=== PATIENT | male | born 1965 | race American Indian/Alaskan Native ===

== ENCOUNTER 2017-03-05 02:31 | Inpatient (IN) | payer MEDICAID, OTHER ==
--- NOTE | 2017-03-05 03:21 | C.PDOC ---
History Of Present Illness 51 year old male presents to the ED as a pre-screen seeking detox from alcohol. Patient's last alcohol drink was 1 hour prior to arrival. Patient denies physical complaints, suicidal, or homicidal ideations at this time. Time Seen by Provider: 03/05/17 03:03 Chief Complaint (Nursing): Psychiatric Evaluation History Per: Patient History/Exam Limitations: no limitations Suicide/Self Injury Attempted (Context): None Modifying Factor(s): Alcohol Severity: None Pain Scale Rating Of: 0 Associated Symptoms: denies: Suicidal Thoughts, Suicidal Plan Involuntary Hold By: None Recent travel outside of the [place]: No Past Medical History Reviewed: Historical Data, Nursing Documentation, Vital Signs Vital Signs: Last Vital Signs Temp 98.1 F 03/05/17 06:00 Pulse 81 03/05/17 06:00 Resp 18 03/05/17 06:00 BP 110/65 03/05/17 06:00 Pulse Ox 95 03/05/17 06:00 - Medical History PMH: Hypercholesterolemia Family History: States: Unknown Family Hx - Social History Hx Alcohol Use: Yes Hx Substance Use: Yes - Immunization History Hx Tetanus Toxoid Vaccination: Yes Hx Influenza Vaccination: No Hx Pneumococcal Vaccination: No Review Of Systems Constitutional: Negative for: Fever, Chills Cardiovascular: Negative for: Chest Pain, Palpitations Respiratory: Negative for: Cough, Shortness of Breath Gastrointestinal: Negative for: Nausea, Vomiting, Abdominal Pain, Diarrhea Physical Exam - Physical Exam Appears: Non-toxic, No Acute Distress Skin: Warm, Dry Head: Atraumatic, Normacephalic Eye(s): bilateral: Normal Inspection, PERRL, EOMI Oral Mucosa: Moist Neck: Supple Chest: Symmetrical, No Deformity Cardiovascular: Rhythm Regular, No Murmur Respiratory: Normal Breath Sounds, No Rales, No Rhonchi, No Wheezing Gastrointestinal/Abdominal: Soft, No Tenderness, No Distention, No Guarding, No Rebound Extremity: Normal ROM, No Tenderness Neurological/Psych: Oriented x3 ED Course And Treatment - Laboratory Results Result Diagrams: 03/05/17 03:38 03/05/17 03:38 O2 Sat by Pulse Oximetry: 100 (RA) Medical Decision Making Medical Decision Makin:40 patient has been medically cleared. Disposition - Disposition Disposition: HOSPITALIZED Disposition Time: 06:40 Condition: STABLE - Clinical Impression Clinical Impression: Alcohol dependence - Scribe Statement The provider has reviewed the documentation as recorded by the Scribe Bisi Mccarty All medical record entries made by the Scribe were at my direction and personally dictated by me. I have reviewed the chart and agree that the record accurately reflects my personal performance of the history, physical exam, medical decision making, and the department course for this patient. I have also personally directed, reviewed, and agree with the discharge instructions and disposition. Decision To Admit - Pt Status Changed To: Hospital Disposition Of: Inpatient - Admit Certification Admit to Inpatient:: After my assessment, the patient will require hospitalization for at least two midnights. This is because of the severity of symptoms shown, intensity of services needed, and/or the medical risk in this patient being treated as an outpatient. - InPatient: Physician Admission Certification: I certify that this patient requires 2 or more midnights of care for the following reason:: needs inpt detox - . Bed Request Type: Detox Admitting Physician: Enedelia Mckeon Patient Diagnosis: Alcohol dependence
[2017-03-05 03:45] LABS: BASO # 0.1 K/uL (0.0-0.2); EOS % 9.2 % (0.0-4.0); LYMPH # 1.8 K/uL (1.0-4.3); LYMPH % 17.5 % (20.0-40.0); MEAN CELL VOLUME 85.3 fL (80.0-94.0); MEAN CORPUSCULAR HEMOGLOBIN 29.1 pg (27.0-31.0); MEAN CORPUSCULAR HGB CONC 34.1 g/dL (33.0-37.0); MEAN PLATELET VOLUME 7.8 fL (7.2-11.7); MONO # 1.1 K/uL (0.0-0.8); MONO % 10.5 % (0.0-10.0); NRBC % 0.1 % (0.0-2.0); RED CELL DISTRIBUTION WIDTH 14.8 % (11.5-14.5); WHITE BLOOD COUNT 10.4 K/uL (4.8-10.8)
[2017-03-05 03:48] LABS: CHLORIDE 98 mmol/L (98-107); POTASSIUM 3.6 mmol/L (3.6-5.2); SODIUM 145 mmol/L (132-148)
[2017-03-05 03:50] LABS: ALB/GLOB RATIO 1.4 (1.0-2.1); AST/SGOT 65 U/L (17-59); BILIRUBIN,TOTAL 0.8 mg/dL (0.2-1.3); BLOOD UREA NITROGEN 12 mg/dL (9-20); CARBON DIOXIDE 27 mmol/L (22-30); GFR AFRICAN-AMERICAN > 60; TOTAL PROTEIN 8.4 g/dL (6.3-8.3)
[2017-03-05 03:51] LABS: ALKALINE PHOSPHATASE 71 U/L (38-126); ALT/SGPT 97 U/L (21-72); CALCIUM 9.8 mg/dl (8.6-10.4); GLUCOSE,RANDOM 101 mg/dL (75-110)
[2017-03-05 04:06] LABS: ALCOHOL SERUM 29 mg/dl (0-10)
[2017-03-05 04:37] LABS: GRANULAR CAST 5 /lpf (0-1); RBC URINE 1 /hpf (0-3); URINE BILIRUBIN NEGATIVE (NEGATIVE); URINE BLOOD NEGATIVE (NEGATIVE); URINE COLOR Yellow (YELLOW); URINE GLUCOSE (UA) NORMAL (Normal); URINE KETONE NEGATIVE (NEGATIVE); URINE LEUKOCYTE ESTERASE NEG Leu/uL (Negative); URINE PROTEIN NEGATIVE (NEGATIVE); URINE UROBILINOGEN NORMAL mg/dL (0.2-1.0); WBC URINE 3 /hpf (0-5)
--- NOTE | 2017-03-05 10:43 | PCM.BM ---
<Meeta Wing - Last Filed: 03/05/17 10:41> Treatment Plan Problems - Problems identified on initial assessmt Potential for Alcohol abuse Date Initiated: 03/05/17 Time Initiated: 07:30 Assessment reference: NA Status: Active Treatment assets and liabiliti Patient Assests: negotiates basic needs Patient Liabilities: poor support system, substance abuse - Milieu Protocol Maintain good personal hygiene: daily Encourage regular showers, daily Remind patient to perform daily oral care, daily Assist patient to perform ADL's, every shift Encourage regular showers, every shift Remind patient to perform daily oral care, every shift Assist patient to perform ADL's Maintain personal safety: daily Educate patient to report safety concerns to staff, daily Monitor environment for contraband/sharps, every shift Educate patient to report safety concerns to staff, every shift Monitor environment for contraband/sharps Medication safety: Monitor for expected outcome, potential side effects: daily, every shift, Assess barriers to learning: daily, every shift, Assess readiness for medication education: daily, every shift <Tiny Alston - Last Filed: 03/06/17 08:23> Family Contact Family involvement: Famliy/SO not involved Family contact: Patient agrees to contact, Patient declines to allow family contact at present - Goals for Treatment Patient goals for treatment: Complete detox and transition to inpatient tx. at the [facility]. Discharge/Continuing Care - Education Needs Education Needs: Patient Medication, Patient Diagnosis/Disease Process, Patient Coping Skills, Patient Anger Management skills, Patient Placement options, Patient Community resources - Discharge Discharge Criteria: Ability to care for self, No longer exhibiting s/s of withdrawal, Reduction of target symptoms Discharge to:: Substance Abuse Rehab - Treatment Team Participation Patient/Family/SO Statement: 03/06/17 08:23 "I need to go inpatient from here..." Discussed with Family/SO: No Was Patient/Family/SO present at Treatment Team Meeting: Yes
[2017-03-05] MEDS: Multiple Vitamins Tab PO SCH (10:52)
[2017-03-05] MEDS: Pantoprazole 20 mg EC Tab PO SCH (11:47)
--- NOTE | 2017-03-05 20:09 | PCM.PSYCH ---
Initial Psychiatric Evaluation - Initial Psychiatric Evaluation Type of Admission: Voluntary Legal Status: Capacity Chief Complaint (in patient's own words): "I have alcohol and cocaine problem" Patient's Reaction to Hospitalization: He is feeling safe. History of Present Illness and Precipitating Events: This pt is a 51 year old single AA male self referred for alcohol and cocaine detox. Pt reports he used 1 1/2 hour prior to arrival to ED. Pt states he drinks 1 pint of vodka daily and about $120-200 worth of cocaine daily. Pt states he had multiple relapse in the past. Longest period of sobriety was for 6 year. 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 Pt states he had relapse on alcohol and cocaine 2 weeks ago after stay sober for 1 year. He reported that he tried not drinking for the past few days but had relapsed 2 weeks ago. Pt experiencing withdrawal symptoms when he tried to stop by himself such as Nausea, chills, autonomic symptoms, headaches, he denied any seizures, or DT. Pt said his substance use is negatively impacting his life. 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 Pt reports his sleep and appetite being unchanged. He stated that he first taken one stick of xanax to calm himself yesterday. He denied using other illicit drugs Pt reports being in detox three previous times at [facility] and [place] "years ago" and most recently at [facility] in 2016. Pt states his longest sobriety was after [facility] being 6 years. Pt reports he has a family hx of alcoholics and heroin use. Pt reports that he is feeling depressed on and off, without SI, intent or plan. He denied any access to guns. Pt states he has never told anyone but has had past S/I in 1980s and he OD on unknown pills and slept and on awakening had regrets thoughts of his action. He denied perceptual disturbances. He denied manic symptoms. BAL of 29 @ 3:38 and positive for benzos and cocaine Current Medications: Active Medications Generic Name Dose Route Start Last Admin Trade Name Freq PRN Reason Stop Dose Admin Clonidine HCl 0.1 mg 03/05/17 05:43 Catapres PO Q4H PRN Symptoms of alcohol withdrawl Folic Acid 1 mg 03/05/17 10:00 03/05/17 10:52 Folic Acid PO Not Given DAILY JOEL Gabapentin 300 mg 03/05/17 10:00 03/05/17 17:54 Neurontin PO 300 mg BID JOEL Administration Hydroxyzine HCl 25 mg 03/05/17 05:43 Atarax PO Q6 PRN Anxiety Lorazepam 2 mg 03/05/17 10:33 03/05/17 17:54 Ativan PO 03/09/17 05:44 2 mg Q4H JOEL Administration Taper Multivitamins 1 tab 03/05/17 10:00 03/05/17 10:52 Hexavitamin PO Not Given DAILY JOEL Ondansetron HCl 4 mg 03/05/17 05:43 Zofran Tab PO Q8H PRN Nausea/Vomiting Pantoprazole Sodium 20 mg 03/05/17 10:30 03/05/17 11:47 Protonix Ec Tab PO Not Given DAILY JOEL Pneumococcal Polyvalent Vaccine 0.5 ml 03/07/17 10:00 Pneumovax 23 Vaccine IM 03/07/17 10:01 .ONCE ONE Rosuvastatin Calcium 10 mg 03/05/17 22:00 Crestor PO HS JOEL Thiamine HCl 100 mg 03/05/17 10:00 03/05/17 10:53 Vitamin B1 Tab PO Not Given DAILY JOEL Trazodone HCl 50 mg 03/05/17 05:43 Desyrel PO HS PRN Insomnia Past Psychiatric History - Past Psychiatric History Prior Professional Help: yes Prior Psychiatric Treatment: detox and inpatient rehab At [facility]: [facility] and [place] History of Abuse: denied History of ETOH/Drug Use: please see HPI History of Family Illness: denied. Pertinent Medical Hx (Current Medical&Sleep Prob, Allergies): Allergies Allergy/AdvReac Type Severity Reaction Status Date / Time No Known Allergies Allergy Unverified 03/05/17 03:11 Atorvastatin [Lipitor] 10 mg PO DAILY 03/05/17 Ranitidine HCl [Zantac] 150 mg PO DAILY 03/05/17 High Cholesterol GERD Review of Systems - Review of Systems Systems not reviewed;Unavailable: Acuity of Condition All systems: reviewed and no additional remarkable complaints except ( psychiatric symptoms) - Constitutional Constitutional: Chills, Sweats Mental Status Examination - Personal Presentation Personal Presentation: Looks stated age, Dressed appropriate to season - Affect Affect: Constricted - Motor Activity Motor Activity: Calm - Reliability in Providing Information Reliability in Providing Information: Fair - Speech Speech: Organized, Coherent - Mood Mood: Anxious - Formal Thought Process Formal Thought Process: No Impairment - Hallucinations/Delusions Delusions: Other (denied) - Obsessions/Compulsions Obsessions: No Compulsions: No - Cognitive Functions Orientation: Person, Place, Situation, Time Sensorium: Alert Attention/Concentration: Attentive Abstract Thinking: [place] Estimate of Intelligence: Average Judgement: Intact, as evidence by: Good judgement (that he needs treatment), Intact, as evidence by: Insight regarding need for hospitalization Memory: Recent intact, as evidence by: Ability to recall events of the day - Risk Risk: Other (denied) - Strength & Assets Inventory Strength & Assets Inventory: Intelligence, Employment history, Skills - Limitations Limitations: Living alone, Other (chronic alcohol use and cocaine use) DSM 5 DX - DSM 5 DSM 5 Diagnosis: Alcohol use disorder, severe, dependence, withdrawal symptoms Cocaine use disorder Unspecified affective d/o - Recommended/Plan of Treatment Treatment Recommendations and Plan of Treatment: Ativan detox Gabapentin for augmentation As needed meds and vitamins Attend groups and activities [place] for abstinence and CBT for relapse prevention Support and psychoeducation Consider and encourage MAT Refer to after care 33 min Projected ELOS: 4-5 days Prognosis: fair with meds Discharge Plan and Discharge Criteria: After care planning by OPAL When pt will complete his detox - Smoking Cessation Smoking Cessation Initiated: Yes
[2017-03-06] MEDS: guaiFENesin 100 mg/5 ml Syrup UD PO PRN ×2 (05:35→12:27)
[2017-03-06] MEDS: Benzocaine/Menthol (Cepacol) Lozenge PO PRN ×3 (05:36→17:14)
[2017-03-06] MEDS: Multiple Vitamins Tab PO SCH (09:36)
[2017-03-06] MEDS: Pantoprazole 20 mg EC Tab PO SCH (09:36)
[2017-03-06] MEDS: Aluminum Hydroxide/Magnesium Hydroxide Susp (30 mL) PO PRN ×2 (12:49→20:25)
--- NOTE | 2017-03-06 13:09 | PCM.PYCHPN ---
Psychiatric Progress Note - Psychiatric Progress Note Patient seen today, length of contact: 17 min Patient Chief Complaint: "OK today" Problems Identified/Issues Discussed: The pt is seen, chart reviewed, case discussed with staff. The pt is compliant with medications and reports no side-effects. Symptoms are improving but needs more time to stabilize. After care discussed, support and psychoeducation given. Medication Change: Yes (detox changes daily) Medical Record Reviewed: Yes Mental Status Examination - Cognitive Function Orientation: Person, Place, Situation, Time Memory: Intact Attention: WNL Concentration: Poor Association: WNL Fund of Knowledge: WNL - Mood Mood: Anxious - Affect Affect: Constricted - Speech Speech: Appropriate - Formal Thought Process Formal Thought Process: No Impairment - Suicidal Ideation Suicidal Ideation: No - Homicidal Ideation Homicidal Ideation: No Goal/Treatment Plan - Goal/Treatment Plan Need for Continued Stay: Discharge may exacerbated symptoms, Severe functional impairment Progress Toward Problem(s) and Goals/Treatment Plan: Continue medications Support and psychoeducation daily Attend groups and activities daily Consider MAT [place] and CBT After care planning by counselor Estimated Date of D/C: 03/10/17
[2017-03-06] MEDS ORDERED: guaiFENesin 200 mg/10 ml Syrup UD PO PRN (14:15)
--- NOTE | 2017-03-06 20:45 | CP.PCM.CON ---
<Joshua Gonsalves - Last Filed: 03/06/17 23:00> History of Present Illness - History of Present Illness History of Present Illness: 51 yo M with a PMHx of pneumonia x3 presented to the ED last night for detox from alcohol and cocaine. Patient now complains of worsening productive cough which began 2 days ago. He doesn't recall the color or consistency of the mucous. The cough is persistent and is provoked by speaking. No alleviating factors. Associated symptoms include headache, ringing ears and chest pain which are all exacerbated when he coughs. [place] [facility] [place] He was also treated for pneumonia in his 20s and once when he was 5 yrs old. He has a 1 ppd smoking history for 30 years. He denies sick contact, recent travel, nausea, vomiting, diarrhea. PMD: Dr Hilton PMHx: Hx of pneumonia x3, HLD PSHx: denies Allergies: NKA Home Medications: none FamHx: denies SocialHx: smokes 1 ppd for 30 years, drinks 1 pint of vodka daily, cocaine use, lives [facility]; unemployed Review of Systems - Constitutional Constitutional: Headache. absent: Chills, Fever - EENT Eyes: absent: Change in Vision Ears: Tinnitus Nose/Mouth/Throat: Nasal Congestion - Cardiovascular Cardiovascular: Chest Pain. absent: Irregular Heart Rhythm, Lightheadedness, Palpitations - Respiratory Respiratory: Cough, Wheezing. absent: Dyspnea, Hemoptysis - Gastrointestinal Gastrointestinal: absent: Abdominal Pain, Constipation, Diarrhea - Genitourinary Genitourinary: absent: Dysuria - Musculoskeletal Musculoskeletal: absent: Back Pain, Muscle Weakness - Integumentary Integumentary: absent: Lesions - Neurological Neurological: Headaches. absent: Confusion, Convulsions, Dizziness Past Patient History - Past Medical History & Family History Past Medical History?: Yes - Past Social History Smoking Status: Current Some Days Smoker - CARDIAC Hx Cardiac Disorders: Yes Hx Hypercholesterolemia: Yes - PULMONARY Hx Respiratory Disorders: No - NEUROLOGICAL Hx Neurological Disorder: No - HEENT Hx HEENT Problems: No - RENAL Hx Chronic Kidney Disease: No - ENDOCRINE/METABOLIC Hx Endocrine Disorders: No - HEMATOLOGICAL/ONCOLOGICAL Hx Blood Disorders: No - INTEGUMENTARY Hx Dermatological Problems: No - MUSCULOSKELETAL/RHEUMATOLOGICAL Hx Musculoskeletal Disorders: No Hx Falls: No - GASTROINTESTINAL Hx Gastrointestinal Disorders: Yes Hx Gastroesophageal Reflux: Yes - GENITOURINARY/GYNECOLOGICAL Hx Genitourinary Disorders: No - PSYCHIATRIC Hx Psychophysiologic Disorder: Yes Hx Anxiety: Yes Hx Substance Use: Yes (cocaine) - SURGICAL HISTORY Hx Surgeries: Yes Other/Comment: circumcision age 11, dental work - pt cant recall date or age - ANESTHESIA Hx Anesthesia: Yes (circumcision age 11 , dental work cant recall date/age done) Hx Anesthesia Reactions: No Hx Malignant Hyperthermia: No Has any member of the family had a problem w/ anesthesia?: No Meds Allergies/Adverse Reactions: Allergies Allergy/AdvReac Type Severity Reaction Status Date / Time No Known Allergies Allergy Unverified 03/05/17 03:11 - Medications Medications: Current Medications Al Hydrox/Mg Hydrox/Simethicone (Maalox 30 Ml) 30 ml PO TID PRN PRN Reason: Indigestion / Heartburn Last Admin: 03/06/17 20:25 Dose: 30 ml Benzocaine/Menthol (Cepacol Sore Throat) 1 aiden PO Q4 PRN PRN Reason: Sore Throat Last Admin: 03/06/17 17:14 Dose: 1 aiden Clonidine HCl (Catapres) 0.1 mg PO Q4H PRN PRN Reason: Symptoms of alcohol withdrawl Folic Acid (Folic Acid) 1 mg PO DAILY [facility] Last Admin: 03/06/17 09:30 Dose: 1 mg Gabapentin (Neurontin) 300 mg PO BID [facility] Last Admin: 03/06/17 18:25 Dose: 300 mg Guaifenesin (Robitussin) 200 mg PO Q4H PRN PRN Reason: Cough Last Admin: 03/06/17 20:24 Dose: 200 mg Hydroxyzine HCl (Atarax) 25 mg PO Q6 PRN PRN Reason: Anxiety Ibuprofen (Motrin Tab) 600 mg PO Q6 PRN PRN Reason: pain Last Admin: 03/06/17 18:55 Dose: 600 mg Lorazepam (Ativan) 1 mg PO Q4H [facility] PRN Reason: Taper Stop: 03/09/17 05:44 Last Admin: 03/06/17 18:25 Dose: 1 mg Multivitamins (Hexavitamin) 1 tab PO DAILY [facility] Last Admin: 03/06/17 09:36 Dose: 1 tab Ondansetron HCl (Zofran Tab) 4 mg PO Q8H PRN PRN Reason: Nausea/Vomiting Pantoprazole Sodium (Protonix Ec Tab) 20 mg PO DAILY [facility] Last Admin: 03/06/17 09:36 Dose: 20 mg Pneumococcal Polyvalent Vaccine (Pneumovax 23 Vaccine) 0.5 ml IM .ONCE ONE Stop: 03/07/17 10:01 Rosuvastatin Calcium (Crestor) 10 mg PO HS [facility] Last Admin: 03/05/17 22:37 Dose: Not Given Thiamine HCl (Vitamin B1 Tab) 100 mg PO DAILY [facility] Last Admin: 03/06/17 09:36 Dose: 100 mg Trazodone HCl (Desyrel) 50 mg PO HS PRN PRN Reason: Insomnia Physical Exam - Constitutional Appears: Well, Non-toxic, No Acute Distress - Head Exam Head Exam: ATRAUMATIC, NORMAL INSPECTION - Eye Exam Eye Exam: EOMI Pupil Exam: PERRL - ENT Exam ENT Exam: Mucous Membranes Moist - Neck Exam Neck exam: Positive for: Normal Inspection. Negative for: Lymphadenopathy, Tenderness - Respiratory Exam Respiratory Exam: Wheezes. absent: Rales, Rhonchi Additional comments: (+) wheezing bilaterally in lower lung [place] - Cardiovascular Exam Cardiovascular Exam: REGULAR RHYTHM. absent: Bradycardia, Tachycardia, Systolic Murmur - GI/Abdominal Exam GI & Abdominal Exam: Normal Bowel Sounds, Soft. absent: Tenderness - Rectal Exam Rectal Exam: Deferred - Extremities Exam Extremities exam: Positive for: normal capillary refill, normal inspection. Negative for: pedal edema, tenderness - Back Exam Back exam: NORMAL INSPECTION. absent: CVA tenderness (L), CVA tenderness (R) - Neurological Exam Neurological exam: Alert, CN II-XII Intact, Oriented x3 - Psychiatric Exam Psychiatric exam: Normal Affect, Normal Mood - Skin Skin Exam: Dry, Intact, Normal Color, Warm Results - Vital Signs Recent Vital Signs: Last Vital Signs Temp 99.6 F 03/06/17 19:32 Pulse 81 03/06/17 19:32 Resp 18 03/06/17 19:32 BP 91/62 L 03/06/17 19:32 Pulse Ox 97 03/06/17 19:32 - Labs Result Diagrams: 03/05/17 03:38 03/05/17 03:38 Assessment & Plan (1) Cough Assessment and Plan: persistent productive cough; (+) wheezing b/l lower lung [place]; afebrile; no leukocytosis; eosinophil 9.2H; negative UA; hx of pneumonia; CXR stat repeat cbc w/ diff administered influenz vaccine, pneumoccal vaccine Status: Acute (2) HLD (hyperlipidemia) Assessment and Plan: rosuvastatin 10mg po hs Status: Acute (3) Prophylactic measure Assessment and Plan: GI: protonix 20mg po daily DVT: not indicated Diet: regular Status: Acute <Mason Pizarro - Last Filed: 03/07/17 06:23> Meds - Medications Medications: Current Medications Al Hydrox/Mg Hydrox/Simethicone (Maalox 30 Ml) 30 ml PO TID PRN PRN Reason: Indigestion / Heartburn Last Admin: 03/06/17 20:25 Dose: 30 ml Albuterol Sulfate (Albuterol 0.083% Inhal Dolly (2.5 Mg/3 Ml) Ud) 2.5 mg INH RQ6 PRN PRN Reason: Cough and congestion Albuterol Sulfate (Albuterol 0.083% Inhal Dolly (2.5 Mg/3 Ml) Ud) 2.5 mg INH STAT STA Stop: 03/07/17 05:49 Benzocaine/Menthol (Cepacol Sore Throat) 1 aiden PO Q4 PRN PRN Reason: Sore Throat Last Admin: 03/06/17 17:14 Dose: 1 aiden Clonidine HCl (Catapres) 0.1 mg PO Q4H PRN PRN Reason: Symptoms of alcohol withdrawl Folic Acid (Folic Acid) 1 mg PO DAILY JOEL Last Admin: 03/06/17 09:30 Dose: 1 mg Gabapentin (Neurontin) 300 mg PO BID JOEL Last Admin: 03/06/17 18:25 Dose: 300 mg Guaifenesin (Robitussin) 200 mg PO Q4H PRN PRN Reason: Cough Last Admin: 03/06/17 20:24 Dose: 200 mg Hydroxyzine HCl (Atarax) 25 mg PO Q6 PRN PRN Reason: Anxiety Ibuprofen (Motrin Tab) 600 mg PO Q6 PRN PRN Reason: pain Last Admin: 03/06/17 18:55 Dose: 600 mg Lorazepam (Ativan) 1 mg PO Q8H JOEL PRN Reason: Taper Stop: 03/09/17 05:44 Last Admin: 03/07/17 02:36 Dose: Not Given Multivitamins (Hexavitamin) 1 tab PO DAILY [facility] Last Admin: 03/06/17 09:36 Dose: 1 tab Ondansetron HCl (Zofran Tab) 4 mg PO Q8H PRN PRN Reason: Nausea/Vomiting Pantoprazole Sodium (Protonix Ec Tab) 20 mg PO DAILY [facility] Last Admin: 03/06/17 09:36 Dose: 20 mg Pneumococcal Polyvalent Vaccine (Pneumovax 23 Vaccine) 0.5 ml IM .ONCE ONE Stop: 03/07/17 10:01 Rosuvastatin Calcium (Crestor) 10 mg PO HS [facility] Last Admin: 03/06/17 21:56 Dose: 10 mg Thiamine HCl (Vitamin B1 Tab) 100 mg PO DAILY [facility] Last Admin: 03/06/17 09:36 Dose: 100 mg Trazodone HCl (Desyrel) 50 mg PO HS PRN PRN Reason: Insomnia Results - Vital Signs Recent Vital Signs: Last Vital Signs Temp 99.6 F 03/06/17 19:32 Pulse 81 03/06/17 19:32 Resp 18 03/06/17 19:32 BP 110/70 03/06/17 21:55 Pulse Ox 97 03/06/17 19:32 - Labs Result Diagrams: 03/06/17 21:17 03/05/17 03:38 Labs: Laboratory Results - last 24 hr 03/06/17 21:17 WBC 7.9 RBC 4.44 Hgb 12.7 D Hct 37.3 MCV 84.1 MCH 28.7 MCHC 34.2 RDW 14.8 H Plt Count 189 MPV 7.7 Neut % (Auto) 53.7 Lymph % (Auto) 22.0 [place] % (Auto) 12.9 H Eos % (Auto) 10.8 H Baso % (Auto) 0.6 Neut # 4.2 Lymph # 1.7 [place] # 1.0 H Eos # 0.8 H Baso # 0.0 Assessment & Plan - Assessment and Plan (Free Text) Plan: I saw and examined this patient who complains of cough beginning after admission on 03/05/17. Initially non productive , but now with white sputum. No fever, headaches, dizziness, nausea, vomiting, nasal congestion nor throat ache. Exam: General: Appears well, no respiratory distress Resp: Generalized Inspiratory and expiratory coarse rhonchi with mild wheezes CVS: S1 S2 RRR Abd: Soft non-tender, +ve bowel sounds Ext: nontender, no edema Neuro: Awake, Alert, Oriented, No focal neurological deficit I&P #. Bronchitis r/o Pneumonia - CXR AP/lat ordered - Blood culture - repeat CBC - Robitussin - Albuterol mini Neb - Encourage fluid intake - Antibiotics if Chest X Ray shows infiltrate Thanks for the consult. We will follow the Patient with you Mason Pizarro MD - Date & Time Date: 03/07/17 Time: 06:09
[2017-03-06 21:20] LABS: BASO % 0.6 % (0.0-2.0); EOS # 0.8 K/uL (0.0-0.7); EOS % 10.8 % (0.0-4.0); HEMATOCRIT 37.3 % (35.0-51.0); LYMPH # 1.7 K/uL (1.0-4.3); MEAN CELL VOLUME 84.1 fL (80.0-94.0); MEAN CORPUSCULAR HEMOGLOBIN 28.7 pg (27.0-31.0); MEAN CORPUSCULAR HGB CONC 34.2 g/dL (33.0-37.0); MEAN PLATELET VOLUME 7.7 fL (7.2-11.7); MONO % 12.9 % (0.0-10.0); RED CELL DISTRIBUTION WIDTH 14.8 % (11.5-14.5); WHITE BLOOD COUNT 7.9 K/uL (4.8-10.8)
[2017-03-07] MEDS ORDERED: Albuterol 0.083% Inhal Sol (2.5 mg/3 mL) UD INH STA (05:48)
--- NOTE | 2017-03-07 07:02 | RAD ---
HISTORY: cough; hx of recent pneumonia COMPARISON: None TECHNIQUE: Chest PA and lateral FINDINGS: LUNGS: No focal consolidation is seen. PLEURA: No pleural effusion is identified. CARDIOVASCULAR: Heart size is within normal limits. OSSEOUS STRUCTURES: No significant abnormalities. VISUALIZED UPPER ABDOMEN: Unremarkable. OTHER FINDINGS: None. IMPRESSION: No acute cardiopulmonary process seen.
--- NOTE | 2017-03-07 07:42 | CP.PCM.PN ---
<Abdias Laguna - Last Filed: 03/07/17 15:39> Subjective - Date & Time of Evaluation Date of Evaluation: 03/07/17 Time of Evaluation: 07:30 - Subjective Subjective: PGY1 Medicine Note for Dr. Pamela Cartwright Patient seen and examined this morning. Patient was seen laughing and talking with friends in common area. Patient states that he has been coughing up white phlegm for a few days. He states that he recently had pneumonia 2 - 3 months ago that he took a z pack for that cleared it up in a couple of days. Patient is talking and coughing periodically but does not appear in any distress. The patient's cough was non productive while being examined. Denies f/c, n/v/d, sob , cp, abd pain or headaches. Objective - Vital Signs/Intake and Output Vital Signs (last 24 hours): Temp Pulse Resp BP Pulse Ox 98.4 F 73 18 123/77 95 03/07/17 06:30 03/07/17 06:30 03/07/17 06:30 03/07/17 06:30 03/07/17 06:30 - Medications Medications: Current Medications Al Hydrox/Mg Hydrox/Simethicone (Maalox 30 Ml) 30 ml PO TID PRN PRN Reason: Indigestion / Heartburn Last Admin: 03/06/17 20:25 Dose: 30 ml Albuterol Sulfate (Albuterol 0.083% Inhal Dolly (2.5 Mg/3 Ml) Ud) 2.5 mg INH RQ6 PRN PRN Reason: Cough and congestion Benzocaine/Menthol (Cepacol Sore Throat) 1 aiden PO Q4 PRN PRN Reason: Sore Throat Last Admin: 03/06/17 17:14 Dose: 1 aiden Clonidine HCl (Catapres) 0.1 mg PO Q4H PRN PRN Reason: Symptoms of alcohol withdrawl Folic Acid (Folic Acid) 1 mg PO DAILY [facility] Last Admin: 03/06/17 09:30 Dose: 1 mg Gabapentin (Neurontin) 300 mg PO BID [facility] Last Admin: 03/06/17 18:25 Dose: 300 mg Guaifenesin (Robitussin) 200 mg PO Q4H PRN PRN Reason: Cough Last Admin: 03/06/17 20:24 Dose: 200 mg Hydroxyzine HCl (Atarax) 25 mg PO Q6 PRN PRN Reason: Anxiety Ibuprofen (Motrin Tab) 600 mg PO Q6 PRN PRN Reason: pain Last Admin: 03/06/17 18:55 Dose: 600 mg Lorazepam (Ativan) 1 mg PO Q8H [facility] PRN Reason: Taper Stop: 03/09/17 05:44 Last Admin: 03/07/17 06:26 Dose: 1 mg Multivitamins (Hexavitamin) 1 tab PO DAILY [facility] Last Admin: 03/06/17 09:36 Dose: 1 tab Ondansetron HCl (Zofran Tab) 4 mg PO Q8H PRN PRN Reason: Nausea/Vomiting Pantoprazole Sodium (Protonix Ec Tab) 20 mg PO DAILY [facility] Last Admin: 03/06/17 09:36 Dose: 20 mg Pneumococcal Polyvalent Vaccine (Pneumovax 23 Vaccine) 0.5 ml IM .ONCE ONE Stop: 03/07/17 10:01 Rosuvastatin Calcium (Crestor) 10 mg PO HS [facility] Last Admin: 03/06/17 21:56 Dose: 10 mg Thiamine HCl (Vitamin B1 Tab) 100 mg PO DAILY [facility] Last Admin: 03/06/17 09:36 Dose: 100 mg Trazodone HCl (Desyrel) 50 mg PO HS PRN PRN Reason: Insomnia - Labs Labs: 03/06/17 21:17 03/05/17 03:38 - Constitutional Appears: Non-toxic, No Acute Distress - Head Exam Head Exam: ATRAUMATIC, NORMOCEPHALIC - Eye Exam Eye Exam: EOMI, Normal appearance - ENT Exam ENT Exam: Mucous Membranes Moist - Neck Exam Neck Exam: absent: Tenderness - Respiratory Exam Respiratory Exam: Wheezes (bases of lungs b/l), NORMAL BREATHING PATTERN. absent: Accessory Muscle Use, Rales, Respiratory Distress - Cardiovascular Exam Cardiovascular Exam: REGULAR RHYTHM, +S1, +S2 - GI/Abdominal Exam GI & Abdominal Exam: Soft, Normal Bowel Sounds. absent: Distended, Firm, Guarding, Rigid, Tenderness - Extremities Exam Extremities Exam: Normal Inspection. absent: Calf Tenderness, Pedal Edema - Neurological Exam Neurological Exam: Alert, Awake, Normal Gait, Oriented x3 - Psychiatric Exam Psychiatric exam: Normal Affect, Normal Mood - Skin Skin Exam: Dry, Normal Color, Warm Assessment and Plan - Assessment and Plan (Free Text) Assessment: (1) Cough - possible emphysema persistent productive cough (white) - cough was no productive during exam (+) wheezing b/l lower lung barnett; afebrile; no leukocytosis; negative UA; hx of pneumonia CXR - No acute pulmonary process seen, flattening of diaphragms b/l administered influenz vaccine, pneumoccal vaccine Started on Advair Diskus 250mg/50mg 1 puff Q12H Recommend patient sees catering truck operator as outpatient Recommended to patient to stop smoking and avoid using any illicit drugs. (2) HLD (hyperlipidemia) rosuvastatin 10mg po hs (3) Prophylactic measure GI: protonix 20mg po daily DVT: not indicated, ambulatory Diet: regular Case discussed with Dr. Pamela Laguna PGY1 <Oleg Cartwright - Last Filed: 03/07/17 18:01> Objective - Vital Signs/Intake and Output Vital Signs (last 24 hours): Temp Pulse Resp BP Pulse Ox 98.3 F 83 18 121/81 99 03/07/17 13:00 03/07/17 13:00 03/07/17 13:00 03/07/17 13:00 03/07/17 13:00 - Medications Medications: Current Medications Al Hydrox/Mg Hydrox/Simethicone (Maalox 30 Ml) 30 ml PO TID PRN PRN Reason: Indigestion / Heartburn Last Admin: 03/06/17 20:25 Dose: 30 ml Albuterol Sulfate (Albuterol 0.083% Inhal Dolly (2.5 Mg/3 Ml) Ud) 2.5 mg INH RQ6 PRN PRN Reason: Cough and congestion Last Admin: 03/07/17 14:43 Dose: 2.5 mg Benzocaine/Menthol (Cepacol Sore Throat) 1 aiden PO Q4 PRN PRN Reason: Sore Throat Last Admin: 03/06/17 17:14 Dose: 1 aiden Clonidine HCl (Catapres) 0.1 mg PO Q4H PRN PRN Reason: Symptoms of alcohol withdrawl Folic Acid (Folic Acid) 1 mg PO DAILY [facility] Last Admin: 03/07/17 09:33 Dose: 1 mg Gabapentin (Neurontin) 300 mg PO BID [facility] Last Admin: 03/07/17 09:33 Dose: 300 mg Guaifenesin (Robitussin) 200 mg PO Q4H PRN PRN Reason: Cough Last Admin: 03/06/17 20:24 Dose: 200 mg Hydroxyzine HCl (Atarax) 25 mg PO Q6 PRN PRN Reason: Anxiety Ibuprofen (Motrin Tab) 600 mg PO Q6 PRN PRN Reason: pain Last Admin: 03/06/17 18:55 Dose: 600 mg Lorazepam (Ativan) 1 mg PO Q8H [facility] PRN Reason: Taper Stop: 03/09/17 05:44 Last Admin: 03/07/17 13:36 Dose: 1 mg Multivitamins (Hexavitamin) 1 tab PO DAILY [facility] Last Admin: 03/07/17 09:33 Dose: 1 tab Ondansetron HCl (Zofran Tab) 4 mg PO Q8H PRN PRN Reason: Nausea/Vomiting Pantoprazole Sodium (Protonix Ec Tab) 20 mg PO DAILY [facility] Last Admin: 03/07/17 09:33 Dose: 20 mg Rosuvastatin Calcium (Crestor) 10 mg PO HS [facility] Last Admin: 03/06/17 21:56 Dose: 10 mg Fluticasone/Salmeterol (Advair Diskus 250/50) 1 puff INH RQ12 [facility] Thiamine HCl (Vitamin B1 Tab) 100 mg PO DAILY [facility] Last Admin: 03/07/17 09:34 Dose: 100 mg Trazodone HCl (Desyrel) 50 mg PO HS PRN PRN Reason: Insomnia - Labs Labs: 03/07/17 07:54 03/07/17 07:54 Attending/Attestation - Attestation I have personally seen and examined this patient.: Yes I have fully participated in the care of the patient.: Yes I have reviewed all pertinent clinical information, including history, physical exam and plan: Yes Notes (Text): 03/07/17 18:01 Patient was seen and examined at 5:45 PM 03/07/17 Exam, Assessment and Plan were thoroughly gone over with the resident. Oleg Cartwright D.O.
[2017-03-07 08:06] LABS: BASO % 0.7 % (0.0-2.0); EOS # 0.8 K/uL (0.0-0.7); EOS % 11.6 % (0.0-4.0); HEMATOCRIT 41.1 % (35.0-51.0); LYMPH # 1.3 K/uL (1.0-4.3); MEAN CELL VOLUME 85.2 fL (80.0-94.0); MEAN CORPUSCULAR HEMOGLOBIN 29.2 pg (27.0-31.0); MEAN CORPUSCULAR HGB CONC 34.3 g/dL (33.0-37.0); MEAN PLATELET VOLUME 7.9 fL (7.2-11.7); MONO % 15.1 % (0.0-10.0); RED CELL DISTRIBUTION WIDTH 14.7 % (11.5-14.5); WHITE BLOOD COUNT 6.8 K/uL (4.8-10.8)
[2017-03-07 08:23] LABS: CHLORIDE 101 mmol/L (98-107); POTASSIUM 4.2 mmol/L (3.6-5.2); SODIUM 141 mmol/L (132-148)
[2017-03-07 08:26] LABS: ALB/GLOB RATIO 1.3 (1.0-2.1); ALKALINE PHOSPHATASE 72 U/L (38-126); ALT/SGPT 93 U/L (21-72); AST/SGOT 50 U/L (17-59); BILIRUBIN,TOTAL 0.6 mg/dL (0.2-1.3); BLOOD UREA NITROGEN 10 mg/dL (9-20); CALCIUM 9.1 mg/dl (8.6-10.4); CARBON DIOXIDE 28 mmol/L (22-30); GFR AFRICAN-AMERICAN > 60; GLUCOSE,RANDOM 81 mg/dL (75-110); TOTAL PROTEIN 7.3 g/dL (6.3-8.3)
[2017-03-07] MEDS: Pantoprazole 20 mg EC Tab PO SCH (09:33)
[2017-03-07] MEDS: Multiple Vitamins Tab PO SCH (09:33)
[2017-03-07] MEDS ORDERED: Influenza Vaccine 60 mcg/0.5 mL SYR (4YR UP) IM ONE (10:00)
[2017-03-07] MEDS ORDERED: Pneumococcal 23-Valent Vaccine IM ONE (10:00)
--- NOTE | 2017-03-07 11:15 | PCM.PYCHPN ---
Psychiatric Progress Note - Psychiatric Progress Note Patient seen today, length of contact: 17 min Patient Chief Complaint: "Some withdrawals" Problems Identified/Issues Discussed: The pt is seen, chart reviewed, case discussed with staff. Support given, CBT and ND used briefly No new symptoms reported, improving slowly and needs more time No SEs from medications, risks discussed. After care discussed - he is interested in MAT and going to [facility] but he wants to use an outside counselor for that (??) Somewhat odd, has boundary issues, labile Medication Change: Yes (detox changes daily) Medical Record Reviewed: Yes Mental Status Examination - Cognitive Function Orientation: Person, Place, Situation, Time Memory: Intact Attention: WNL Concentration: Poor Association: WNL Fund of Knowledge: WNL - Mood Mood: Anxious - Affect Affect: Constricted - Speech Speech: Appropriate - Formal Thought Process Formal Thought Process: No Impairment - Suicidal Ideation Suicidal Ideation: No - Homicidal Ideation Homicidal Ideation: No Goal/Treatment Plan - Goal/Treatment Plan Need for Continued Stay: Discharge may exacerbated symptoms, Severe functional impairment Progress Toward Problem(s) and Goals/Treatment Plan: Continue medications Support and psychoeducation daily Attend groups and activities daily Consider MAT ND and CBT After care planning by counselor Estimated Date of D/C: 03/10/17
[2017-03-07] MEDS: Albuterol 0.083% Inhal Sol (2.5 mg/3 mL) UD INH PRN (14:43)
[2017-03-07] MEDS: Fluticasone-Salmeterol 250-50mcg Diskus INH SCH (22:42)
[2017-03-08] MEDS: Fluticasone-Salmeterol 250-50mcg Diskus INH SCH ×2 (09:01→21:00)
--- NOTE | 2017-03-08 09:11 | CP.PCM.PN ---
<Abdias Laguna - Last Filed: 03/08/17 11:16> Subjective - Date & Time of Evaluation Date of Evaluation: 03/08/17 Time of Evaluation: 06:50 - Subjective Subjective: PGY1 Medicine Note for Dr. Pamela Cartwright Patient seen and examined this morning. Patient states that he used his inhaler yesterday. He does not know if it helped but he does feel like he is not coughing as much. He did not cough throughout the entire examination. Denies any other complaints at this time. Objective - Vital Signs/Intake and Output Vital Signs (last 24 hours): Temp Pulse Resp BP Pulse Ox 99 F 95 H 20 134/62 98 03/08/17 06:45 03/08/17 05:25 03/08/17 05:25 03/08/17 05:25 03/08/17 05:25 - Medications Medications: Current Medications Al Hydrox/Mg Hydrox/Simethicone (Maalox 30 Ml) 30 ml PO TID PRN PRN Reason: Indigestion / Heartburn Last Admin: 03/06/17 20:25 Dose: 30 ml Albuterol Sulfate (Albuterol 0.083% Inhal Dolly (2.5 Mg/3 Ml) Ud) 2.5 mg INH RQ6 PRN PRN Reason: Cough and congestion Last Admin: 03/07/17 14:43 Dose: 2.5 mg Benzocaine/Menthol (Cepacol Sore Throat) 1 aiden PO Q4 PRN PRN Reason: Sore Throat Last Admin: 03/06/17 17:14 Dose: 1 aiden Clonidine HCl (Catapres) 0.1 mg PO Q4H PRN PRN Reason: Symptoms of alcohol withdrawl Folic Acid (Folic Acid) 1 mg PO DAILY [facility] Last Admin: 03/07/17 09:33 Dose: 1 mg Gabapentin (Neurontin) 300 mg PO BID [facility] Last Admin: 03/07/17 18:03 Dose: 300 mg Guaifenesin (Robitussin) 200 mg PO Q4H PRN PRN Reason: Cough Last Admin: 03/06/17 20:24 Dose: 200 mg Hydroxyzine HCl (Atarax) 25 mg PO Q6 PRN PRN Reason: Anxiety Ibuprofen (Motrin Tab) 600 mg PO Q6 PRN PRN Reason: pain Last Admin: 03/08/17 05:27 Dose: 600 mg Lorazepam (Ativan) 1 mg PO Q24H [facility] PRN Reason: Taper Stop: 03/09/17 05:44 Last Admin: 03/08/17 05:24 Dose: 1 mg Multivitamins (Hexavitamin) 1 tab PO DAILY [facility] Last Admin: 03/07/17 09:33 Dose: 1 tab Ondansetron HCl (Zofran Tab) 4 mg PO Q8H PRN PRN Reason: Nausea/Vomiting Pantoprazole Sodium (Protonix Ec Tab) 20 mg PO DAILY [facility] Last Admin: 03/07/17 09:33 Dose: 20 mg Rosuvastatin Calcium (Crestor) 10 mg PO HS [facility] Last Admin: 03/07/17 22:42 Dose: 10 mg Fluticasone/Salmeterol (Advair Diskus 250/50) 1 puff INH RQ12 [facility] Last Admin: 03/08/17 09:01 Dose: 1 puff Thiamine HCl (Vitamin B1 Tab) 100 mg PO DAILY [facility] Last Admin: 03/07/17 09:34 Dose: 100 mg Trazodone HCl (Desyrel) 50 mg PO HS PRN PRN Reason: Insomnia - Labs Labs: 03/07/17 07:54 03/07/17 07:54 - Constitutional Appears: Non-toxic, No Acute Distress - Head Exam Head Exam: ATRAUMATIC, NORMOCEPHALIC - Eye Exam Eye Exam: EOMI, Normal appearance. absent: Scleral icterus - ENT Exam ENT Exam: Mucous Membranes Moist - Respiratory Exam Respiratory Exam: Clear to Ausculation Bilateral, NORMAL BREATHING PATTERN. absent: Accessory Muscle Use, Rales, Rhonchi, Wheezes, Respiratory Distress - Cardiovascular Exam Cardiovascular Exam: REGULAR RHYTHM, +S1, +S2 - GI/Abdominal Exam GI & Abdominal Exam: Soft, Normal Bowel Sounds. absent: Distended, Firm, Guarding, Rigid, Tenderness - Extremities Exam Extremities Exam: absent: Calf Tenderness, Pedal Edema - Neurological Exam Neurological Exam: Alert, Awake, Normal Gait, Oriented x3 - Psychiatric Exam Psychiatric exam: Normal Affect, Normal Mood - Skin Skin Exam: Dry, Normal Color, Warm Assessment and Plan - Assessment and Plan (Free Text) Assessment: (1) Cough - possible emphysema persistent productive cough (white) - cough was no productive during exam (+) wheezing b/l lower lung barnett; afebrile; no leukocytosis; negative UA; hx of pneumonia CXR - No acute pulmonary process seen, flattening of diaphragms b/l administered influenz vaccine, pneumoccal vaccine Scripts left in chart: Advair Diskus 250mg/50mg 1 puff INH Q12H Ventolin 90mcg per actuation 2 puffs INH Q4H PRN Recommend patient sees transportation assistant as outpatient - arrange through primary care physician Recommended to patient to stop smoking and avoid using any illicit drugs. (2) HLD (hyperlipidemia) rosuvastatin 10mg po hs (3) Prophylactic measure GI: protonix 20mg po daily DVT: not indicated, ambulatory Diet: regular Medicine team is signing off. Please re-consult if needed. Case discussed with Dr. Pamela Laguna PGY1 <Oleg Cartwright - Last Filed: 03/08/17 17:38> Objective - Vital Signs/Intake and Output Vital Signs (last 24 hours): Temp Pulse Resp BP Pulse Ox 98.4 F 79 18 127/80 98 03/08/17 17:01 03/08/17 14:31 03/08/17 17:01 03/08/17 17:01 03/08/17 17:01 - Medications Medications: Current Medications Al Hydrox/Mg Hydrox/Simethicone (Maalox 30 Ml) 30 ml PO TID PRN PRN Reason: Indigestion / Heartburn Last Admin: 03/08/17 15:42 Dose: 30 ml Albuterol Sulfate (Albuterol 0.083% Inhal Dolly (2.5 Mg/3 Ml) Ud) 2.5 mg INH RQ6 PRN PRN Reason: Cough and congestion Last Admin: 03/08/17 13:59 Dose: 2.5 mg Benzocaine/Menthol (Cepacol Sore Throat) 1 aiden PO Q4 PRN PRN Reason: Sore Throat Last Admin: 03/06/17 17:14 Dose: 1 aiden Clonidine HCl (Catapres) 0.1 mg PO Q4H PRN PRN Reason: Symptoms of alcohol withdrawl Folic Acid (Folic Acid) 1 mg PO DAILY [facility] Last Admin: 03/08/17 11:12 Dose: 1 mg Gabapentin (Neurontin) 300 mg PO BID [facility] Last Admin: 03/08/17 11:12 Dose: 300 mg Guaifenesin (Robitussin) 200 mg PO Q4H PRN PRN Reason: Cough Last Admin: 03/06/17 20:24 Dose: 200 mg Hydroxyzine HCl (Atarax) 25 mg PO Q6 PRN PRN Reason: Anxiety Ibuprofen (Motrin Tab) 600 mg PO Q6 PRN PRN Reason: pain Last Admin: 03/08/17 05:27 Dose: 600 mg Lorazepam (Ativan) 1 mg PO Q24H [facility] PRN Reason: Taper Stop: 03/09/17 05:44 Last Admin: 03/08/17 05:24 Dose: 1 mg Multivitamins (Hexavitamin) 1 tab PO DAILY [facility] Last Admin: 03/08/17 11:12 Dose: 1 tab Ondansetron HCl (Zofran Tab) 4 mg PO Q8H PRN PRN Reason: Nausea/Vomiting Pantoprazole Sodium (Protonix Ec Tab) 20 mg PO DAILY [facility] Last Admin: 03/08/17 11:12 Dose: 20 mg Rosuvastatin Calcium (Crestor) 10 mg PO HS [facility] Last Admin: 03/07/17 22:42 Dose: 10 mg Fluticasone/Salmeterol (Advair Diskus 250/50) 1 puff INH RQ12 [facility] Last Admin: 03/08/17 09:01 Dose: 1 puff Thiamine HCl (Vitamin B1 Tab) 100 mg PO DAILY [facility] Last Admin: 03/08/17 11:12 Dose: 100 mg Trazodone HCl (Desyrel) 50 mg PO HS PRN PRN Reason: Insomnia - Labs Labs: 03/07/17 07:54 03/07/17 07:54 Attending/Attestation - Attestation I have personally seen and examined this patient.: Yes I have fully participated in the care of the patient.: Yes I have reviewed all pertinent clinical information, including history, physical exam and plan: Yes Notes (Text): 03/08/17 17:37 Patient was seen and examined shortly after resident. Exam, assessment and plan were thoroughly gone over with the resident. Oleg Cartwright D.O.
[2017-03-08] MEDS: Multiple Vitamins Tab PO SCH (11:12)
[2017-03-08] MEDS: Pantoprazole 20 mg EC Tab PO SCH (11:12)
--- NOTE | 2017-03-08 13:38 | PCM.PYCHPN ---
Psychiatric Progress Note - Psychiatric Progress Note Patient seen today, length of contact: 16 min Patient Chief Complaint: "I feel a lot better" Problems Identified/Issues Discussed: Pt is seen, chart reviewed, case discussed with staff. Pt is compliant with medications and reports no side effects. He slept well last night and denies tremors He does not have any complaints. Symptoms are improving but pt needs more time to stabilize. Support and psychoeducation given, CBT and ME used briefly. After care discussed. He is prepared for discharged this Saturday 03/10. He would like to go to [facility] or [facility]. Will work with counselors. Medication Change: Yes (Detox meds change daily) Medical Record Reviewed: Yes Mental Status Examination - Cognitive Function Orientation: Person, Place, Situation, Time Memory: Intact Attention: WNL Concentration: WNL Association: WNL Fund of Knowledge: WNL - Mood Mood: Anxious - Affect Affect: Constricted - Speech Speech: Appropriate - Formal Thought Process Formal Thought Process: No Impairment - Suicidal Ideation Suicidal Ideation: No - Homicidal Ideation Homicidal Ideation: No Goal/Treatment Plan - Goal/Treatment Plan Need for Continued Stay: Discharge may exacerbated symptoms, Severe functional impairment Progress Toward Problem(s) and Goals/Treatment Plan: Ativan taper Continue other medications as prescribed Support and psychoeducation daily Attend groups and activities daily Attend self-help groups as well ME for abstinence CBT for relapse prevention After care planning with counselors Estimated Date of D/C: 03/10/17 (Pt needs more time to stabilize)
[2017-03-08] MEDS: Albuterol 0.083% Inhal Sol (2.5 mg/3 mL) UD INH PRN (13:59)
[2017-03-08] MEDS: Aluminum Hydroxide/Magnesium Hydroxide Susp (30 mL) PO PRN (15:42)
[2017-03-09] MEDS: Fluticasone-Salmeterol 250-50mcg Diskus INH SCH ×2 (08:38→22:33)
[2017-03-09] MEDS: Multiple Vitamins Tab PO SCH (10:06)
[2017-03-09] MEDS: Pantoprazole 20 mg EC Tab PO SCH (10:06)
--- NOTE | 2017-03-09 11:36 | PCM.PYCHPN ---
Psychiatric Progress Note - Psychiatric Progress Note Patient seen today, length of contact: 15 min Patient Chief Complaint: "I feel like I need an antibiotic" Problems Identified/Issues Discussed: Pt is seen, chart reviewed, case discussed with staff. Pt is compliant with medications and reports no side effects. Today the pt does not complain of withdrawal symptoms and states that he slept well. However, he is experiencing a cough and congestion. He was consulted by IM yesterday. Symptoms are improving but pt needs more time to stabilize. Support and psychoeducation given, CBT and GA used briefly. After care discussed. He will continue to discuss options with counselors and his drug circuit court clerk. Medication Change: Yes (Detox meds change daily) Medical Record Reviewed: Yes Mental Status Examination - Cognitive Function Orientation: Person, Place, Situation, Time Memory: Intact Attention: WNL Concentration: WNL Association: WNL Fund of Knowledge: WNL - Mood Mood: Neutral - Affect Affect: Constricted - Speech Speech: Appropriate - Formal Thought Process Formal Thought Process: No Impairment - Suicidal Ideation Suicidal Ideation: No - Homicidal Ideation Homicidal Ideation: No Goal/Treatment Plan - Goal/Treatment Plan Need for Continued Stay: Discharge may exacerbated symptoms, Severe functional impairment Progress Toward Problem(s) and Goals/Treatment Plan: Ativan taper Continue other medications as prescribed Support and psychoeducation daily Attend groups and activities daily Attend self-help groups as well GA for abstinence CBT for relapse prevention After care planning with counselors Estimated Date of D/C: 03/10/17 (Pt needs more time to stabilize)
[2017-03-09 14:22] VITALS: RESP 18
[2017-03-10 06:03] VITALS: TEMP 97.8
[2017-03-10] MEDS: Fluticasone-Salmeterol 250-50mcg Diskus INH SCH (07:45)
--- NOTE | 2017-03-10 08:51 | PCM.PYCHDC ---
Mental Status Examination - Mental Status Examination Orientation: Person, Place, Situation, Time Memory: Intact Mood: Anxious Affect: Constricted Speech: Appropriate Attention: WNL Concentration: WNL Association: WNL Fund of Knowledge: WNL Formal Thought Process: No Impairment Suicidal Ideation: No Current Homicidal Ideation?: No Discharge Summary - Discharge Note Reason for Hospitalization: Presented for alcohol and cocaine detox Psychiatric History (includes Medical, Family, Personal Hx): 3 detoxes in past; family hx of alcohol and heroin use disorders Consultations:: List each consultation separately and include: 1. Reason for request. 2. Findings. 3. Follow-up Consultations: Medical consult for productive cough Summary of Hospital Course include:: 1. Description of specific treatment plan utilized for patients during their course of treatmen. 2. Summarize the time- course for resolution of acute symptoms and/or regressed behaviors. 3. Describe issues identified and worked on during hospitalization. 4. Describe medication utilized. 5. Describe medical problems identified and treated. 6. Reassessment of suicide risk Summary of Hospital Course: Pt was admitted and started on treatment with psychotherapy, support, psychoeducation and medications. WI and CBT used. Pt attended groups and activities as well as milieu therapy. All the risks and benefits of medications were discussed and pt understood and agreed. Pt improved with the treatment provided. He reports to feel well and has no complaints. After care discussed. He will be discharged to home with plans to follow up at [facility] "if my media liaison officer has no objections." - Final Diagnosis (DSM 5) Condition upon Discharge: STABLE DSM 5: Alcohol use disorder, severe, dependence Alcohol withdrawal Affective disorder, unspecified Disposition: HOME/ ROUTINE Follow-up Treatment Plan: Continue below medications after discharge. Follow after care as discussed. Use relapse prevention skills. Return to ER or call 911 if suicidal, homicidal or symptoms relapse. Stay away from stress, alcohol and drugs. See primary doctor once a year. Prescriptions/Medication Reconciliation: Gabapentin [Neurontin] 300 mg PO BID #60 cap Pantoprazole [Protonix EC Tab] 20 mg PO DAILY #30 ect traZODone [Desyrel] 50 mg PO HS PRN #30 tab PRN Reason: Insomnia - Antipsychotic Medications Pt discharged on 2 or more routine antipsychotic medications: No
[2017-03-10] MEDS: Pantoprazole 20 mg EC Tab PO SCH (09:30)
[2017-03-10] MEDS: Multiple Vitamins Tab PO SCH (09:30)
[2017-03-10 10:04] VITALS: BP 116/78; PULSE 84; O2SAT 99
== END 2017-03-10 09:30 | disposition home or self-care (01) | DRG 745 ==
LOC: C.ER 02:31 → C.7D 05:41
PROVIDERS: ADMIT Psychiatry & Neurology Psychiatry; ATTEND Psychiatry & Neurology Psychiatry
PROC: HZ2ZZZZ Detoxification Services for Substance Abuse Treatment (ICD-10-PCS; principal; 2017-03-05)
PROC: HZ52ZZZ Individual Psychotherapy for Substance Abuse Treatment, Cognitive-Behavioral (ICD-10-PCS; 2017-03-05)
PROC: HZ59ZZZ Individual Psychotherapy for Substance Abuse Treatment, Supportive (ICD-10-PCS; 2017-03-05)
PROC: HZ56ZZZ Individual Psychotherapy for Substance Abuse Treatment, Psychoeducation (ICD-10-PCS; 2017-03-05)
DX: F10.239 Alcohol dependence with withdrawal, unspecified (principal); F11.90 Opioid use, unspecified, uncomplicated; F39 Unspecified mood [affective] disorder; E78.5 Hyperlipidemia, unspecified; F14.90 Cocaine use, unspecified, uncomplicated; E78.00 Pure hypercholesterolemia, unspecified; F17.210 Nicotine dependence, cigarettes, uncomplicated; K21.9 Gastro-esophageal reflux disease without esophagitis; Z79.51 Long term (current) use of inhaled steroids; Z87.01 Personal history of pneumonia (recurrent); F41.9 Anxiety disorder, unspecified; F45.9 Somatoform disorder, unspecified